=== PATIENT | male | born 1995 | race Caucasian/White ===

== ENCOUNTER 2017-12-22 10:22 | Emergency (ER) | payer MEDICAID ==
[~2017-12-22] VITALS: Ht 666.8 cm; Wt 71.2 kg
[2017-12-22 10:25] VITALS: BP 114/56
[2017-12-22] MEDS ORDERED: BENZ-16 PO (10:55)
== END 2017-12-22 11:16 | disposition home or self-care (01) ==
LOC: ER 10:22
DX: R05 Cough (principal); F12.90 Cannabis use, unspecified, uncomplicated; Z59.0 Homelessness
CPT/HCPCS: 99283

== ENCOUNTER 2018-12-18 11:17 | Emergency (ER) | payer MEDICAID ==
[~2018-12-18] VITALS: Ht 190.5 cm; Wt 60.9 kg
[2018-12-18] MEDS ORDERED: CEPH500C5 PO (12:23)
[2018-12-18] MEDS ORDERED: SULF1TAB49 PO (12:23)
[2018-12-18 12:28] VITALS: BP 123/67
== END 2018-12-18 12:30 | disposition home or self-care (01) ==
LOC: ER 11:18
DX: L03.115 Cellulitis of right lower limb (principal); Z59.0 Homelessness; Z79.899 Other long term (current) drug therapy
CPT/HCPCS: 99283

== ENCOUNTER 2019-03-15 22:21 | Emergency (ER) | payer MEDICAID ==
[~2019-03-15] VITALS: Ht 190.5 cm; Wt 81.8 kg
[2019-03-15 22:28] VITALS: BP 128/73
[2019-03-15] MEDS ORDERED: AZIT250T PO (23:10)
[2019-03-15] MEDS ORDERED: ROBCFL PO (23:10)
== END 2019-03-15 23:23 | disposition home or self-care (01) ==
LOC: ER 22:22
DX: J20.9 Acute bronchitis, unspecified (principal); Z59.0 Homelessness
CPT/HCPCS: 99283